=== PATIENT | male | born 1960 | race Two or more races ===

== ENCOUNTER 2023-07-06 12:57 | Outpatient (REF) | payer MEDICAID, SELFPAY ==
--- NOTE | ~2023-07-06 | XR_ITS ---
EXAMINATION: XR KNEE, RIGHT CLINICAL INFORMATION: Reason for Exam M25.561 - Pain in right knee COMPARISON: None TECHNIQUE: 3 views of the knee FINDINGS: No acute fracture or dislocation. Mild degenerative changes of the knee with extensive tendon enthesopathy. No joint effusion. Soft tissue swelling along the dorsum of the knee. Atherosclerotic vascular calcification. XR/XR knee RT 3V IMPRESSION: 1. Mild degenerative changes of the knee with extensive tendon enthesopathy. 2. Soft tissue swelling along the dorsum of the knee.
== END 2023-07-06 12:58 | disposition home or self-care (01) ==
LOC: HO.HOSX 12:57
PROVIDERS: Visit Provider Orthopaedic Surgery
DX: M25.561 Pain in right knee (principal)
CPT/HCPCS: 73562; 99202

== ENCOUNTER 2023-07-06 12:58 | Outpatient (AMB) | payer MEDICAID, SELFPAY ==
--- NOTE | 2023-07-06 13:01 | MHC.OFFVIS ---
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 The patient states that he injured his right knee approximately 9 months ago. He twisted his knee and had acute onset of pain. Since that time his symptoms have gotten worse in spite of continued non operative treatments. Has done physical therapy for 12 weeks over the last 6 months which aggravated his pain. He has also tried Tylenol and anti-inflammatory medicines which gave him minimal relief. He has had injections in the past which gave him no relief. The patient states that his right knee will give out several times per day. 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 Physical Exam Vital Signs: BMI result Body Mass Index 24.4 Const Other: Well-nourished well-developed very friendly male awake alert and oriented x3 in no acute distress Extrem Other: Bilateral lower extremity examination shows good capillary refill, no skin lesions noted, normal sensation light touch Right knee examination shows a minimal effusion, minimal crepitus with range of motion, tenderness along his medial joint line, positive Debbie's test, no instability Results Reviewed Results Reviewed: Standing full weight-bearing x-rays of the patient's right knee show mild diffuse grade 1 joint space narrowing, no acute bony abnormalities Assessment & Plan Assessment & Plan (1) Right knee pain: Code(s): M25.561 - Pain in right knee Plan Mr. Houston presents with progressively worsening right knee pain and mechanical symptoms most likely due to a tear of his medial meniscus. Thus, I will send him for an MRI of his right knee for further evaluation. If he does have a significant tear I will recommend arthroscopic surgery to optimize his future functional level. I did have the patient fitted for a right knee brace because of his symptoms of instability. I feel that the brace is a medical necessity to help prevent future falls. I will see the patient back after his MRI to discuss the findings and treatment options. Feel free to call me at any time should questions regarding his orthopedic management arise. Thank you very much for asking me to see this very friendly gentleman. I spent 22 minutes in reviewing the patient's records and imaging studies, seeing the patient and documenting in the medical record. Orders: Orders XR knee RT 3V 07/06/23 M25.561 - Pain in right knee MR knee RT wo con 07/06/23 M25.561 - Pain in right knee Medications: New meloxicam 15 mg PO DAILY PRN 30 tabs 2RF pain Coding Level of Care Code New Pt Level 2 (40526) Diagnoses Right knee pain M25.561
[2023-07-06 13:24] VITALS: BMI 24.4
== END 2023-07-06 13:37 | disposition home or self-care (01) ==
PROVIDERS: PCP Internal Medicine Infectious Disease; Visit Provider Orthopaedic Surgery
DX: M25.561 Pain in right knee (principal)
CPT/HCPCS: 99202

== ENCOUNTER 2023-09-07 07:16 | Outpatient (REF) | payer MEDICAID, SELFPAY ==
--- NOTE | ~2023-09-07 | MR_ITS ---
EXAMINATION: MR KNEE WITHOUT CONTRAST, RIGHT CLINICAL INFORMATION: Right knee pain and swelling. Locking. Medial pain. COMPARISON: Right knee radiographs dated 07/06/2023. TECHNIQUE: MRI of the knee without contrast was performed using routine sequences on a high-field scanner. FINDINGS: MENISCI: Medial Meniscus: Oblique inner margin/tibial articular surface tear of the meniscal body extending through the posterior horn and root. Prominent medial parameniscal cyst, which extends peripheral to the medial collateral ligament and measures up to 4.2 x 1.4 x 4.3 cm (AP x ML x CC). Minimal adjacent soft tissue edema. Lateral Meniscus: Minimal degenerative intrasubstance signal without a measurable tear. LIGAMENTS: Cruciate: Intact Collateral: Intact EXTENSOR MECHANISM: Superior patellar enthesophytes. Intact quadriceps and patellar tendons. Normal patellofemoral alignment. ARTICULAR CARTILAGE/BONE: Patellofemoral Compartment: Inferior central trochlea signal heterogeneity and fissuring. Tiny marginal osteophytes. Medial Compartment: Intact articular cartilage. Lateral Compartment: Intact articular cartilage. JOINT FLUID AND BURSAE: Trace joint effusion and trace Pierre's cyst. MR/MR knee RT wo con IMPRESSION: 1. Oblique inner margin/tibial articular surface tear of the medial meniscal body extending through the posterior horn and root. Prominent medial parameniscal cyst measuring up to 4.2 cm. 2. Minimal degenerative intrasubstance signal within the lateral meniscus without a measurable tear. 3. Minimal patellofemoral arthrosis. Trace joint effusion and trace Pierre's cyst.
== END 2023-09-07 07:17 | disposition home or self-care (01) ==
LOC: HO.MRI 07:16
PROVIDERS: Visit Provider Orthopaedic Surgery
DX: M25.561 Pain in right knee (principal)
CPT/HCPCS: 73721

== ENCOUNTER 2023-09-14 14:17 | Outpatient (AMB) | payer MEDICAID, SELFPAY ==
[2023-09-14 14:21] VITALS: BMI 24.4
--- NOTE | 2023-09-14 14:21 | MHC.OFFVIS ---
Intake Vital Signs 09/14/23 14:21 Height 6 ft 2 in Weight 190 lb BMI 24.4 Intake Visit Reasons: ov- MRI Knee RT review Intake Note: Jordan 62 yr old male presents today with complaints of progressively worsening right knee pain and giving way. The patient states that he injured his right knee approximately 9 months ago. He twisted his knee and had acute onset of pain. Since that time his symptoms have gotten worse in spite of continued non operative treatments. Has done physical therapy for 12 weeks over the last 6 months which aggravated his pain. He has also tried Tylenol and anti-inflammatory medicines which gave him minimal relief. He has had injections in the past which gave him no relief. The patient states that his right knee will give out several times per day. He does walk with a cane because of his pain and instability. 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 Physical Exam Vital Signs: BMI result Body Mass Index 24.4 Const Other: Well-nourished well-developed very friendly male awake alert and oriented x3 in no acute distress Lungs - clear to auscultation bilaterally with symmetric expansion Cardiovascular exam - regular rate and rhythm Abdominal exam - soft nontender nondistended Extrem Other: Bilateral lower extremity examination shows good capillary refill, no skin lesions noted, normal sensation light touch Right knee examination shows a minimal effusion, minimal crepitus with range of motion, tenderness along his medial joint line, positive Debbie's test, no instability Results Reviewed Results Reviewed: MRI of the patient's right knee shows mild diffuse degenerative changes as well as a tear of the medial meniscus Assessment & Plan Assessment & Plan (1) Right knee pain: Code(s): M25.561 - Pain in right knee Plan Mr. Houston presents with progressively worsening right knee pain and mechanical symptoms due to a tear of his medial meniscus. I had a lengthy discussion with the patient regarding his treatment options. At this point he has failed continued non operative treatments. The risks and benefits of right knee arthroscopic surgery were discussed at length with the patient. The patient wishes to proceed with surgery. Surgery will most likely involve right knee diagnostic arthroscopy with arthroscopic partial medial meniscectomy. The patient will be scheduled for next available date. He will follow-up as instructed. Feel free to call me at any time should questions regarding his orthopedic management arise. I spent 22 minutes in reviewing the patient's records and imaging studies, seeing the patient and documenting in the medical record. Coding Level of Care Code Est Pt Level 2 (52681) Diagnoses Right knee pain M25.561
== END 2023-09-14 15:09 | disposition home or self-care (01) ==
PROVIDERS: PCP Internal Medicine Infectious Disease; Visit Provider Orthopaedic Surgery
DX: S83.241A Other tear of medial meniscus, current injury, right knee, initial encounter (principal)
CPT/HCPCS: 99213

== ENCOUNTER → 2023-09-14 14:17 | Outpatient (BNVA) | payer MEDICAID, SELFPAY | PROVIDERS: PCP Internal Medicine Infectious Disease; Visit Provider Orthopaedic Surgery | DX: M25.561 Pain in right knee (principal) | CPT/HCPCS: 99212 ==

== ENCOUNTER 2023-10-19 12:28 | Outpatient (AMB) | payer MEDICAID, SELFPAY ==
--- NOTE | 2023-10-19 12:30 | A.OFFVIS_ITS ---
Intake Vital Signs 10/19/23 12:31 Height 6 ft 2 in Weight 190 lb BMI 24.4 Intake Visit Reasons: Pre-Rt Knee , 10/27/23 Intake Note: Jordan is a 62 year old male who presents for his pre operative appointment for his Right knee on 10/27/2023. Pain management agreement signed and reviewed. Ukrainian version given as well. The patient describes his right knee pain as sharp in nature. Most of the pain is along the medial aspect of his knee. His symptoms have gotten worse over the last year in spite of continued non operative treatments. He has had injections in the past which gave him minimal relief. Has also done physical therapy exercises which aggravated his pain. Allergies No Known Allergies Allergy (Verified 10/19/23 12:36) Medication List - Last Reconciled 10/19/23 by Joce Markham PA-C apixaban (Eliquis) 5 mg PO BID dulaglutide (Trulicity) 0.75 mg subcut QWEEK empagliflozin (Jardiance) 25 mg PO QAM hydrocodone-acetaminophen 5-325 mg 1 tab PO Q6H PRN 7 days lisinopril 2.5 mg PO DAILY losartan 25 mg PO DAILY loteprednol etabonate 0.5% (Lotemax) 1 drp ophthalmic (eye) TID meloxicam 15 mg PO DAILY PRN naproxen sodium (Aleve) 220 mg PO BID PRN HPI Pre-Rt Knee , 10/27/23 HPI Details Jordan is a 62 year old male who presents for his pre operative appointment for his Right knee on 10/27/2023. He is on Eliquis for h.o dvt. He states he has not had his Trulicity for the last 2 months because the pharmacy is out of stock. States his sugar levels have been stable. 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 Review of Systems Const All systems reviewed & are unremarkable except as noted in HPI and below Physical Exam Vital Signs: BMI result Body Mass Index 24.4 Const Other: Well-nourished well-developed very friendly male awake alert and oriented x3 in no acute distress General: cooperative and no acute distress Orientation/consciousness: patient oriented x3 HEENT Head: Yes normal to inspection, Yes normocephalic and Yes atraumatic Eyes General: appearance normal, both eyes and all related structures Neck Neck: Yes normal visual inspection and Yes no lymphadenopathy Resp Effort & Inspection: normal respiratory effort and able to speak in complete sentences Cardio Rate: regular rate Peripheral pulses: Peripheral pulses 2+ throughout GI Inspection: Yes normal to inspection Palpation (GI): Soft to palpation Skin General skin exam: no rashes or lesions noted Neuro General: patient oriented x3 Extrem Other: Right knee minimal crepitus with range of motion, tenderness along his medial joint line, positive Debbie's test, no instability Psych Appearance: grossly normal Mental Status: mental status grossly normal Results Reviewed Results Reviewed: Standing full weight-bearing x-rays of the patient's right knee show mild diffuse joint space narrowing, no acute bony abnormalities MRI of the patient's right knee shows mild diffuse joint space narrowing as well as a tear of the medial meniscus Assessment & Plan Assessment & Plan (1) Right knee pain: Code(s): M25.561 - Pain in right knee Qualifiers: Chronicity: unspecified Qualified Code(s): M25.561 - Pain in right knee Plan: Plan Mr. Houston presents with right knee pain and mechanical symptoms due to a tear of his medial meniscus. The risks and benefits of right knee arthroscopic surgery were discussed at length with the patient. The patient wishes to proceed with surgery. He does understand that he may not get 100% relief of his symptoms depending on the severity of his degenerative changes. The patient was given a prescription for Vicodin for his postoperative pain. He will follow-up as instructed. Medications: New hydrocodone-acetaminophen 5-325 mg Partial Fill upon patient request. 1 tab PO Q6H 7 days PRN 28 tabs 0RF pain Joce Markham PA-C hydrocodone-acetaminophen 5-325 mg Partial Fill upon patient request. 1 tab PO Q6H 7 days PRN 28 tabs 0RF pain Alexys Corrigan MD Patient Instructions: Scribed for Joce Markham PA-C, by Robby Loza neuropsychology medical consultant, on 10/19/2023 at 12:45 PM EST. Joce Zapata PA-C, have personally reviewed and agree with the information entered by the scribe. Coding Level of Care Code Est Pt Level 3 (93260) Diagnoses Right knee pain, unspecified chronicity M25.561 Chronicity: unspecified
[2023-10-19 12:31] VITALS: BMI 24.4
== END 2023-10-19 13:48 | disposition home or self-care (01) ==
PROVIDERS: PCP Internal Medicine Infectious Disease; Visit Provider Orthopaedic Surgery
DX: M25.561 Pain in right knee (principal)
CPT/HCPCS: 99213

== ENCOUNTER → 2023-10-19 12:28 | Outpatient (BNVA) | payer MEDICAID, SELFPAY | PROVIDERS: PCP Internal Medicine Infectious Disease; Visit Provider Orthopaedic Surgery | DX: M25.561 Pain in right knee (principal) | CPT/HCPCS: 99212 ==